=== PATIENT | female | born 1965 | race Caucasian/White ===

== ENCOUNTER 2020-07-18 02:41 | Emergency (ER) | payer SELFPAY ==
[~2020-07-18] VITALS: Ht 172.7 cm; Wt 133.8 kg
[2020-07-18 03:10] LABS: BASOPHILS # (AUTO) 0.1 (0.0-0.1); BASOPHILS % 0.7 % (0.0-1.0); EOSINOPHILS # (AUTO) 0.3 (0.0-0.4); EOSINOPHILS % 3.1 % (0.0-6.0); HEMATOCRIT 39.8 % (34.2-44.1); HEMOGLOBIN 13.9 g/dL (12.0-16.0); LYMPHOCYTES # (AUTO) 4.8 (1.0-3.2); LYMPHOCYTES % 46.3 % (18.0-39.1); MEAN CORPUSCULAR HEMOGLOBIN 32.4 pg (28-32); MEAN CORPUSCULAR HGB CONC 34.9 g/dL (31-35); MEAN CORPUSCULAR VOLUME 92.8 fL (81-99); MONOCYTES # (AUTO) 0.6 (0.2-0.8); MONOCYTES % 5.4 % (4.4-11.3); NEUTROPHILS # (AUTO) 4.6 (2.1-6.9); NEUTROPHILS % 44.3 % (38.7-80.0); PLATELET COUNT 287 x10e3/uL (140-360); RED BLOOD COUNT 4.29 x10e6/uL (3.6-5.1); RED CELL DISTRIBUTION WIDTH 12.4 % (11.7-14.4)
--- NOTE | 2020-07-18 03:21 | Emergency Department Note ---
History of Present Illnes History of Present Illness Chief Complaint: Hypertension History of Present Illness This is a 54 year old female PRESENTS TO THE ER C/O ELEVATED BP AND NAUSEA; PT [facility] AND PRESCRIBED HCTZ FOR BP; PT TOOK X1 TAB AT 1430; PT STATES WHEN BEFORE SHE WENT TO BED BP WAS 160/98 AND WOKE UP AT 0215 "NOT FEELING GOOD AND FELT FUNNY", TOOK BP READING 170/110 HR 106; PT DENIES CP OR SOB; DENIES BLURRED VISION, TINNITUS, MELENDEZ OR LIGHTHEADED OR DIZZINESS; NAD NOTED AT THIS TIME; . Historian: Patient Arrival Mode: Car Radio Division Lieutenant Required: No Onset (how long ago): hour(s) (2) Location: NONE Quality: NAUSEA, ELEVATED BP Radiation: Reports non-radiation Severity: mild Onset quality: sudden Duration (how long): hour(s) (2) Timing of current episode: unable to specify Progression: resolved Chronicity: new Context: Reports recent illness (STARTED ON HCTZ YESTERDAY FOR HTN) Relieving factors: none Exacerbating factors: none Associated symptoms: Reports denies other symptoms Treatments prior to arrival: none Past Medical/Family History Physician Review I have reviewed the patient's past medical and family history. Any updates have been documented here. Past Medical History Recent Fever: No Clinical Suspicion of Infectio: No New/Unexplained Change in Ment: No Past Medical History: Hypertension Past Surgical History: Tubal Ligation Other Surgery: CYST REMOVAL FROM UTERUS Social History Smoking Cessation: Never Smoker Alcohol Use: None Any Illegal Drug Use: No Family History Family history of heart diseas: No Review of Systems Review of Systems Constitutional: Reports no symptoms EENTM: Reports no symptoms Cardiovascular: Reports no symptoms Respiratory: Reports no symptoms Gastrointestinal: Reports nausea Genitourinary: Reports no symptoms Musculoskeletal: Reports no symptoms Integumentary: Reports no symptoms Neurological: Reports no symptoms Psychological: Reports no symptoms Endocrine: Reports no symptoms Hematological/Lymphatic: Reports no symptoms Review of other systems: All other systems negative Physical Exam Related Data Allergies: Coded Allergies: Penicillins (Verified Allergy, Unknown, HIVES, 07/18/20) Triage Vital Signs Vital Signs Date Time Temp Pulse Resp B/P (MAP) Pulse Ox O2 Delivery O2 Flow Rate FiO2 07/18/20 02:41 98.1 92 16 163/106 98 Room Air Vital signs reviewed: Yes Physical Exam CONSTITUTIONAL Constitutional: Present well-developed, Present well-nourished; Absent distressed HENT HENT: Present normocephalic, Present atraumatic, Present oropharynx clear/ moist, Present nose normal HENT L/R: Present left ext ear normal, Present right ext ear normal EYES Eyes: Reports PERRL, Reports conjunctivae normal NECK Neck: Present ROM normal PULMONARY Pulmonary: Present effort normal, Present breath sounds normal CARDIOVASCULAR Cardiovascular: Present regular rhythm, Present heart sounds normal, Present capillary refill normal, Present normal rate GASTROINTESTINAL Abdominal: Present soft, Present nontender, Present bowel sounds normal GENITOURINARY Genitourinary: Present exam deferred SKIN Skin: Present warm, Present dry MUSCULOSKELETAL Musculoskeletal: Present ROM normal NEUROLOGICAL Neurological: Present alert, Present oriented x 3, Present no gross motor or sensory deficits PSYCHOLOGICAL Psychological: Present mood/affect normal, Present judgement normal Results Laboratory Result Diagram: 07/18/20 0300 Laboratory Laboratory Tests Test 07/18/20 03:00 White Blood Count 10.40 x10e3/uL (4.8-10.8) Red Blood Count 4.29 x10e6/uL (3.6-5.1) Hemoglobin 13.9 g/dL (12.0-16.0) Hematocrit 39.8 % (34.2-44.1) Mean Corpuscular Volume 92.8 fL (81-99) Mean Corpuscular Hemoglobin 32.4 pg (28-32) Mean Corpuscular Hemoglobin Concent 34.9 g/dL (31-35) Red Cell Distribution Width 12.4 % (11.7-14.4) Platelet Count 287 x10e3/uL (140-360) Neutrophils (%) (Auto) 44.3 % (38.7-80.0) Lymphocytes (%) (Auto) 46.3 % (18.0-39.1) Monocytes (%) (Auto) 5.4 % (4.4-11.3) Eosinophils (%) (Auto) 3.1 % (0.0-6.0) Basophils (%) (Auto) 0.7 % (0.0-1.0) Neutrophils # (Auto) 4.6 (2.1-6.9) Lymphocytes # (Auto) 4.8 (1.0-3.2) Monocytes # (Auto) 0.6 (0.2-0.8) Eosinophils # (Auto) 0.3 (0.0-0.4) Basophils # (Auto) 0.1 (0.0-0.1) Absolute Immature Granulocyte (auto 0.02 x10e3/uL (0-0.1) Sodium Level 140 mmol/L (136-145) Potassium Level 3.3 mmol/L (3.5-5.1) Chloride Level 104 mmol/L (98-107) Carbon Dioxide Level 23 mmol/L (22-29) Anion Gap 16.3 mmol/L (8-16) Blood Urea Nitrogen 6 mg/dL (7-26) Creatinine 0.72 mg/dL (0.57-1.11) Estimat Glomerular Filtration Rate > 60 ML/MIN (60-) BUN/Creatinine Ratio 8 (6-25) Glucose Level 138 mg/dL (74-118) Calcium Level 9.4 mg/dL (8.4-10.2) Creatine Kinase 102 IU/L (29-168) Creatine Kinase MB 4.30 ng/mL (0-5.0) Troponin I 0.022 ng/mL (0-0.300) Laboratory Tests Test 07/18/20 03:00 White Blood Count 10.40 x10e3/uL (4.8-10.8) Red Blood Count 4.29 x10e6/uL (3.6-5.1) Hemoglobin 13.9 g/dL (12.0-16.0) Hematocrit 39.8 % (34.2-44.1) Mean Corpuscular Volume 92.8 fL (81-99) Mean Corpuscular Hemoglobin 32.4 pg (28-32) Mean Corpuscular Hemoglobin Concent 34.9 g/dL (31-35) Red Cell Distribution Width 12.4 % (11.7-14.4) Platelet Count 287 x10e3/uL (140-360) Neutrophils (%) (Auto) 44.3 % (38.7-80.0) Lymphocytes (%) (Auto) 46.3 % (18.0-39.1) Monocytes (%) (Auto) 5.4 % (4.4-11.3) Eosinophils (%) (Auto) 3.1 % (0.0-6.0) Basophils (%) (Auto) 0.7 % (0.0-1.0) Neutrophils # (Auto) 4.6 (2.1-6.9) Lymphocytes # (Auto) 4.8 (1.0-3.2) Monocytes # (Auto) 0.6 (0.2-0.8) Eosinophils # (Auto) 0.3 (0.0-0.4) Basophils # (Auto) 0.1 (0.0-0.1) Absolute Immature Granulocyte (auto 0.02 x10e3/uL (0-0.1) Lab results reviewed: Yes Procedures 12 Lead ECG Interpretation ECG Interpretation : ECG: ECG 1 Radio Division Lieutenant: Interpreted by ED physician Date: Jul 18, 2020 Time: 02:58 Rhythm: sinus rhythm Rate: normal BPM: 79 QRS axis: normal ST segments normal: Yes T waves normal: Yes Other findings: LVH Assessment & Plan Medical Decision Making MDM PT WITH ELEVATED BP CBC, BMP, CARDIAC ENZYMES, EKG ORDERED TO EVAL OF ARRHYTHMIA, MYOCARDIAL INFARCTION, RENAL INSUFFICIENCY, ELECTROLYTE ABNORMALITY Assessment & Plan Final Impression: (1) HTN (hypertension) Depart Disposition: HOME, SELF-CARE Last Vital Signs Date Time Temp Pulse Resp B/P (MAP) Pulse Ox O2 Delivery O2 Flow Rate FiO2 07/18/20 03:09 85 14 165/92 100 Room Air 07/18/20 02:41 98.1 YEISON MAXWELL MD Jul 18, 2020 03:21
[2020-07-18 03:28] LABS: ANION GAP 16.3 mmol/L (8-16); BLOOD UREA NITROGEN 6 mg/dL (7-26); BUN/CREATININE RATIO 8 (6-25); CALCIUM 9.4 mg/dL (8.4-10.2); CARBON DIOXIDE 23 mmol/L (22-29); CHLORIDE 104 mmol/L (98-107); CREATINE KINASE 102 IU/L (29-168); CREATININE, SERUM 0.72 mg/dL (0.57-1.11); EST GLOMERULAR FILTRATION RATE > 60 ML/MIN (60-); GLUCOSE 138 mg/dL (74-118); POTASSIUM 3.3 mmol/L (3.5-5.1); SODIUM 140 mmol/L (136-145)
--- OUTSIDE RECORDS SUMMARY | 2020-07-18 09:35 | XMS REPORT | Continuity of Care Document ---
Author Author [facility] Organization [facility] Address [address] [place] [address] Phone Unavailable Care Team Providers Care Hothouse Worker Name Role Phone NO, PCP PCP Unavailable Payers Payer Name Policy Type Policy Number Effective Date Expiration Date Sara Koh[employer] Workers Comp [id number] [facility] Problems Condition Name Condition Details Condition Category Status Onset Date Resolution Date Last Treatment Date Treating Clinician Comments Source Hypertension Problem Active [facility] Allergies, Adverse Reactions, Alerts Allergy Name Allergy Type Status Severity Reaction(s) Onset Date Inacti ve Date Treating Clinician Comments Source Penicillin Allergy to substance Active HIVES 2020-07-18 00:00:00 [facility] Social History Social Habit Start Date Stop Date Quantity Comments Source Sex Assigned At 1965 00:00:00 1965 00:00:00 Female [facility] Medications This patient has no known medications. Vital Signs Vital Name Observation Time Observation Value Comments Source Weight 2020-07-18 02:41:00 295 [lb_av] [facility] BMI (Body Mass Index) 2020-07-18 02:41:00 44.9 kg/m2 [facility] Procedures This patient has no known procedures. Plan of Care Planned Activity Planned Date Details Comments Source Instructions Hypertension [facility] Encounters Start Date/Time End Date/Time Encounter Type Admission Type [facility] Care Department Encounter ID Source 2020-07-18 03:05:00 2020-07-18 03:55:00 Departed Emergency Room [facility] [id number] [facility] Results Test Description Test Time Test Comments Results Result Comments Source Blood leukocytes automated count (number/volume) 2020-07-18 03:00:00 Test Item White Blood Count (test code = 6690-2) 10.40 4.8-10.8 [facility] count (number/volume)2020-07-18 03:00:00* Test Item Value Reference Range Interpretation Comments Red Blood Count (test code = 789-8) 4.29 3.6-5.1 [facility] measurement (moles/volume)2020-07-18 03:00:00* Test Item Value Reference Range Interpretation Comments Hemoglobin (test code = 62083-5) 13.9 12.0-16.0 [facility] CenterAutom[facility] blood hematocrit (volume fraction)2020-07-18 03:00:00* Test Item Value Reference Range Interpretation Comments Hematocrit (test code = 4544-3) 39.8 34.2-44.1 [facility] Center[facility] erythrocyte mean corpuscular [id number] 03:00:00* Test Item Value Reference Range Interpretation Comments Mean Corpuscular Volume (test code = 787-2) 92.8 81-99 [facility] Center[facility] eryth[facility] mean corpuscular hemoglobin (mass per erythrocyte)2020-07-18 03:00:00* Test Item Value Reference Range Interpretation Comments Mean Corpuscular Hemoglobin (test code = 785-6) 32.4 28-32 [facility] CenterAutom[facility] erythrocyte mean corpuscular hemoglobin concentration measurement (mass/volume)2020-07-18 03:00:00* Test Item Value Reference Range Interpretation Comments Mean Corpuscular Hemoglobin Concent (test code = 786-4) 34.9 31-35 [facility] CenterRDW [id number] 03:00:00* Test Item Value Reference Range Interpretation Comments Red Cell Distribution Width (test code = 74250-7) 12.4 11.7 -14.4 [facility] CenterAutom[facility] blood platelet count (count/volume)2020-07-18 03:00:00* Test Item Value Reference Range Interpretation Comments Platelet Count (test code = 777-3) 287 140-360 [facility] CenterAutom[facility] blood segmented neutrophil count as percentage of total ulrtlpahma2782-94-73 03:00:00* Test Item Value Reference Range Interpretation Comments Neutrophils (%) (Auto) (test code = 27033-6) 44.3 38.7-80.0 [facility] CenterAutom[facility] blood lymphocyte count as percentage ot total [id number] 03:00:00* Test Item Value Reference Range Interpretation Comments Lymphocytes (%) (Auto) (test code = 736-9) 46.3 18.0-39.1 [facility] CenterAutom[facility] blood monocyte count as percentage of total zjioizmyvo6615-59-23 03:00:00* Test Item Value Reference Range Interpretation Comments Monocytes (%) (Auto) (test code = 5905-5) 5.4 4.4-11.3 [facility] CenterAutom[facility] blood eosinophil count as percentage of total gluhrdeejk1906-76-22 03:00:00* Test Item Value Reference Range Interpretation Comments Eosinophils (%) (Auto) (test code = 713-8) 3.1 0.0-6.0 [facility] CenterAutom[facility] blood basophil count as percentage of total [id number] 03:00:00* Test Item Value Reference Range Interpretation Comments Basophils (%) (Auto) (test code = 706-2) 0.7 0.0-1.0 [facility] CenterFluoroscopic procedure less than one hour [id number] 03:00:00* Test Item Value Reference Range Interpretation Comments IM GRANULOCYTES % (test code = IM GRANULOCYTES %) 0.2 0.0- 1.0 [facility] CenterAutom[facility] blood neutrophil count 2020-07-18 03:00:00* Test Item Value Reference Range Interpretation Comments Neutrophils # (Auto) (test code = 751-8) 4.6 2.1-6.9 [facility] CenterBlood lymphocytes count (number/volume) 2020-07-18 03:00:00* Test Item Value Reference Range Interpretation Comments Lymphocytes # (Auto) (test code = 35545-2) 4.8 1.0-3.2 [facility] CenterBlood monocytes automated count (number/volume)2020-07-18 03:00:00* Test Item Value Reference Range Interpretation Comments Monocytes # (Auto) (test code = 742-7) 0.6 0.2-0.8 [facility] CenterAutomated blood eosinophil count 2020-07-18 03:00:00* Test Item Value Reference Range Interpretation Comments Eosinophils # (Auto) (test code = 711-2) 0.3 0.0-0.4 [facility] CenterAutomated blood basophil count (count/volume)2020-07-18 03:00:00* Test Item Value Reference Range Interpretation Comments Basophils # (Auto) (test code = 704-7) 0.1 0.0-0.1 [facility] CenterFluoroscopic procedure less than one hour [id number] 03:00:00* Test Item Value Reference Range Interpretation Comments Absolute Immature Granulocyte (auto (carmel t code = Absolute Immature Granulocyte (auto) 0.02 0-0.1 [facility] plasma sodium measurement (moles/volume)2020-07-18 03:00:00* Test Item Value Reference Range Interpretation Comments Sodium Level (test code = 2951-2) 140 136-145 [facility] or plasma potassium measurement (moles/volume)2020-07-18 03:00:00* Test Item Value Reference Range Interpretation Comments Potassium Level (test code = 2823-3) 3.3 3.5-5.1 [facility] or plasma chloride measurement (moles/volume)2020-07-18 03:00:00* Test Item Value Reference Range Interpretation Comments Chloride Level (test code = 2075-0) 104 98-107 [facility]erum or plasma carbon dioxide, total measurement (moles/volume)2020-07-18 03:00:00* Test Item Value Reference Range Interpretation Comments Carbon Dioxide Level (test code = 2028-9) 23 22-29 [facility] Hospitalerum or plasma anion [id number] 03:00:00* Test Item Value Reference Range Interpretation Comments Anion Gap (test code = 05471-5) 16.3 8-16 [facility]erum or plasma urea nitrogen measurement (mass/volume)2020-07-18 03:00:00* Test Item Value Reference Range Interpretation Comments Blood Urea Nitrogen (test code = 3094-0) 6 7-26 [facility] Hospitalerum or plasma creatinine measurement (mass/volume)2020-07-18 03:00:00* Test Item Value Reference Range Interpretation Comments Creatinine (test code = 2160-0) 0.72 0.57-1.11 [facility] Hospitalerum or plasma urea nitrogen/creatinine mass [id number] 03:00:00* Test Item Value Reference Range Interpretation Comments BUN/Creatinine Ratio (test code = 3097-3) 8 6-25 [facility] CenterEstimated glomerular filtration rate (GFR) cmxzipnsmfjao5871-32-97 03:00:00* Test Item Value Reference Range Interpretation Comments Estimat Glomerular Filtration Rate (test code = 627332649) > 60 >60 Ranges were taken from the National Kidney Disease Education Program and the [facility] Kidney Foundation literature.Reference ranges:60 or greater: [id number] ( for 3 consecutive months): Chronic kidney disease 15 or less: Kidney failureCarrollton Regional Medical CenterGlucose qimocytxufg0939-00-43 03:00:00* Test Item Value Reference Range Interpretation Comments Glucose Level (test code = HPE6880) 138 74-118 [facility] Hospitalerum or plasma calcium measurement (mass/volume)2020-07-18 03:00:00* Test Item Value Reference Range Interpretation Comments Calcium Level (test code = 00779-7) 9.4 8.4-10.2 [facility] Hospitalerum or plasma creatine kinase measurement (enzymatic activity/volume)2020-07-18 03:00:00* Test Item Value Reference Range Interpretation Comments Creatine Kinase (test code = 2157-6) 102 29-168 [facility] Hospitalerum or plasma creatine kinase MB measurement (mass/volume)2020-07-18 03:00:00* Test Item Value Reference Range Interpretation Comments Creatine Kinase MB (test code = 67042-7) 4.30 0-5.0 [facility] CenterTroponin I measurement by highly sensitive enzyme aegxfzonizr4240-97-75 03:00:00* Test Item Value Reference Range Interpretation Comments Troponin I (test code = 07254-0) 0.022 0-0.300 [facility]
== END 2020-07-18 03:55 | disposition home or self-care (01) ==
LOC: ER 03:05
DX: I10 Essential (primary) hypertension (principal); R11.0 Nausea
CPT/HCPCS: 36415; 80048; 82550; 82553; 84484; 85025; 93005; 99284

== ENCOUNTER → 2024-12-03 | Day surgery (SDC) | payer BC, OTHER ==
[~2024-12-03] MED LIST: ADVIL DUAL ACT1 EACH; ALLERGY RELIEF10 M1; GLUCAGON FOR INJ 1 MG VIAL ONE; HYOSCYAMINE SULFATE 0.5 MG/ML INJ ONE; LIDOCAINE HCL 2% LOCAL INJ 5 ML SDV VIAL INJ ONE; LISINOPRIL10 MG PO; MIDAZOLAM HCL 2 MG/2 ML VIAL ONE; MULTIVITAMIN1 EACH; PHENYLEPHRINE HCL 1% 10 MG/ML VIAL ONE; PROPOFOL IV EMULSION 10 MG/ML 20 ML VIAL ONE; TYLENOL EXTRA500 MG PO
[2024-12-03] MEDS: LACTATED RINGER'S 1,000 ML ONE (14:36)
[2024-12-03 17:30] VITALS: TEMP 97.9
[2024-12-03 18:00] VITALS: BP 106/71; PULSE 90; RESP 16; O2SAT 95
== END | disposition home or self-care (01) ==
LOC: OR 13:52
PROVIDERS: ATTEND Internal Medicine Gastroenterology
DX: R19.5 Other fecal abnormalities (principal); D12.2 Benign neoplasm of ascending colon; K62.5 Hemorrhage of anus and rectum; K59.00 Constipation, unspecified; K64.8 Other hemorrhoids; I10 Essential (primary) hypertension; Z01.810 Encounter for preprocedural cardiovascular examination; Z79.1 Long term (current) use of non-steroidal anti-inflammatories (NSAID); Z79.899 Other long term (current) drug therapy; Z68.36 Body mass index [BMI] 36.0-36.9, adult
CPT/HCPCS: 45381; 45385; 93005; J1610; J1980; J2003; J2250; J2371; J2704; J7121